=== PATIENT | male | born 1985 | race Caucasian/White ===

== ENCOUNTER 2020-08-18 12:07 | Day surgery (SDC) | payer OTHER ==
[~2020-08-18 12:07] MED LIST: Glycopyrrolate 0.2 MG/ML SDV ONE; Ketorolac 30 MG/ML SDV ONE; Lidocaine 2% 5 ML SDV ONE; Midazolam 1 MG/ML 2 ML SDV ONE; Ondansetron 4 MG/2 ML SDV ONE; Propofol 200 MG/20 ML SDV ONE; Rocuronium Bromide 50 MG/5 ML Syringe ONE; fentaNYL 100 MCG/2 ML SDV ONE
[2020-08-18] MEDS ORDERED: Lactated Ringers 1,000 ML IV SCH (12:15)
--- NOTE | 2020-08-18 12:56 | PCM.PREANE ---
Preanesthetic Assessment - Anesthesia/Transfusion/Family Hx Anesthesia History: No Prior Anesthesia Family History of Anesthesia Reaction: No Transfusion History: No Prior Transfusion(s) - Review of Systems General: No Symptoms Pulmonary: No Symptoms Cardiovascular: No Symptoms Neurological: No Symptoms Other: Reports: None - Physical Assessment NPO Status Date: 08/17/20 Height: 5 ft 10 in Weight: 79.379 kg ASA Class: 1 Mental Status: Alert & Oriented x3 Airway Class: Mallampati = 2 Dentition: Reports: Normal Dentition ROM/Head Extension: Full Lungs: Clear to Auscultation, Normal Respiratory Effort Cardiovascular: Regular Rate, Regular Rhythm - Lab Values: Laboratory Last Values SARS-CoV-2 RNA ([facility]) NEGATIVE (NEGATIVE) 08/18/20 10:22 - Allergies Allergies/Adverse Reactions: Allergies Allergy/AdvReac Type Severity Reaction Status Date / Time No Known Allergies Allergy Verified 08/18/20 10:24 - Blood Blood Available: No - Anesthesia Plan Pre-Op Medication Ordered: None - Acknowledgements Anesthesia Type Planned: Spinal Pt an Appropriate Candidate for the Planned Anesthesia: Yes Alternatives and Risks of Anesthesia Discussed w Pt/Guardian: Yes Pt/Guardian Understands and Agrees with Anesthesia Plan: Yes Additional Comments: PMH: none PLAN: saddle block PreAnesthesia Questionnaire HEENT History: Reports: None Cardiovascular History: Reports: None Respiratory History: Reports: None Gastrointestinal History: Reports: Hemorrhoids Other Gastrointestinal History: occasional heartburn Genitourinary History: Reports: None Musculoskeletal History: Reports: Fracture Other Musculoskeletal History: hx fx wrist and fingers Neurological History: Reports: Concussion Psychiatric History: Reports: Other (See Below) Other Psychiatric History: "undiagnosed PTSD" Endocrine/Metabolic History: Reports: None Hematologic History: Reports: None Immunologic History: Reports: None Oncologic (Cancer) History: Reports: None Dermatologic History: Reports: None - Past Surgical History Head Surgeries/Procedures: Reports: None HEENT Surgical History: Reports: Oral Surgery Cardiovascular Surgical History: Reports: None Respiratory Surgical History: Reports: None GI Surgical History: Reports: None Male Surgical History: Reports: None Endocrine Surgical History: Reports: None Neurological Surgical History: Reports: None Musculoskeletal Surgical History: Reports: None Oncologic Surgical History: Reports: None Dermatological Surgical History: Reports: None - SUBSTANCE USE Tobacco Use Status *Q: Never Tobacco User - HOME MEDS Home Medications: Home Meds . [No Known Home Meds] 08/18/20 [History] - CURRENT (IN HOUSE) MEDS Current Meds: Current Medications Lactated Ringer's (Ringers, Lactated) 1,000 mls @ 125 mls/hr IV ASDIRECTED REGULO Discontinued Medications Fentanyl (Sublimaze) Confirm Administered Dose 100 mcg .ROUTE .STK-MED ONE Stop: 08/18/20 12:07 Glycopyrrolate (Robinul) Confirm Administered Dose 0.2 mg .ROUTE .STK-MED ONE Stop: 08/18/20 12:07 Glycopyrrolate (Robinul) Confirm Administered Dose 0.6 mg .ROUTE .STK-MED ONE Stop: 08/18/20 12:07 Ketorolac Tromethamine (Toradol) Confirm Administered Dose 30 mg .ROUTE .STK-MED ONE Stop: 08/18/20 12:07 Lidocaine (Xylocaine-Mpf 2%) Confirm Administered Dose 5 ml .ROUTE .STK-MED ONE Stop: 08/18/20 12:07 Midazolam HCl (Versed 1 Mg/Ml) Confirm Administered Dose 2 mg .ROUTE .STK-MED ONE Stop: 08/18/20 12:07 Ondansetron HCl (Zofran) Confirm Administered Dose 4 mg .ROUTE .STK-MED ONE Stop: 08/18/20 12:07 Propofol (Diprivan 20 Ml) Confirm Administered Dose 200 mg .ROUTE .STK-MED ONE Stop: 08/18/20 12:06 Rocuronium [place] (Rocuronium [place]) Confirm Administered Dose 50 mg .ROUTE . STK-MED ONE Stop: 08/18/20 12:07
[2020-08-18] MEDS ORDERED: Midazolam 1 MG/ML 2 ML SDV ONE ×2 (13:17→14:28)
[2020-08-18] MEDS ORDERED: Sodium Chloride 0.9% 20 ML ONE (14:09)
[2020-08-18] MEDS ORDERED: cefOXitin 1 GM Vial ONE (14:09)
[2020-08-18] MEDS ORDERED: Lidocaine 1% with EPINEPHrine 1:100,000 20 ML MDV ONE ×2 (14:22→15:58)
[2020-08-18] MEDS ORDERED: Propofol 200 MG/20 ML SDV ONE ×3 (14:52→15:16)
[2020-08-18] MEDS ORDERED: Lidocaine 2% Jelly 30 ML Tube ONE (16:00)
--- NOTE | 2020-08-18 16:42 | PCM.OPNOTE ---
- General Post-Op/Procedure Note Date of Surgery/Procedure: 08/18/20 Operative Procedure(s): Hemorrhoidectomy Findings: strangulated left hemorrhoid. incarcerated right posterior hemorrhoid. dictation number [id number] Pre Op Diagnosis: strangulated left hemorrhoid. incarcerated right posterior hemorrhoid. Post-Op Diagnosis: strangulated left hemorrhoid. incarcerated right posterior hemorrhoid. Anesthesia Technique: Spinal Primary Surgeon: Tee Lock Pathology: Hemorrhoids EBL in mLs: 20 Condition: Good
--- NOTE | 2020-08-18 16:50 | PCM.POSTAN ---
POST ANESTHESIA ASSESSMENT - MENTAL STATUS Mental Status: Alert - VITAL SIGNS Vital Signs: Last Vital Signs Temp 36.6 C 08/18/20 16:06 Pulse 82 08/18/20 16:42 Resp 17 08/18/20 16:42 BP 119/79 08/18/20 16:42 Pulse Ox 99 08/18/20 16:42 - RESPIRATORY Respiratory Status: Respiratory Rate WNL - CARDIOVASCULAR CV Status: Pulse Rate WNL - GASTROINTESTINAL GI Status: No Symptoms - POST OP HYDRATION Hydration Status: Adequate & Stable
--- NOTE | 2020-08-18 17:40 | PCM48HPAN ---
Post Anesthesia Note - EVALUATION WITHIN 48HRS OF ANESTHETIC Vital Signs in Normal Range: Yes Patient Participated in Evaluation: Yes Respiratory Function Stable: Yes Airway Patent: Yes Cardiovascular Function Stable: Yes Hydration Status Stable: Yes Pain Control Satisfactory: Yes Nausea and Vomiting Control Satisfactory: Yes Mental Status Recovered: Yes Vital Signs: Last Vital Signs Temp 36.0 C L 08/18/20 16:47 Pulse 71 08/18/20 16:47 Resp 15 08/18/20 16:47 BP 123/70 08/18/20 16:47 Pulse Ox 99 08/18/20 16:47
--- NOTE | 2020-08-18 18:28 | OR ---
SURGEON: JG DEL ROSARIO MD DATE OF PROCEDURE: 08/18/2020 PREOPERATIVE DIAGNOSES: 1. Strangulated gangrenous left hemorrhoid. 2. Incarcerated right-sided hemorrhoid. POSTOPERATIVE DIAGNOSES: 1. Strangulated necrotic left hemorrhoid. 2. Incarcerated right posterior hemorrhoid. PRIMARY SURGEON: Jg Del Rosario MD. ANESTHESIA: Spinal with anesthesiologist. ESTIMATED BLOOD LOSS: 20 mL. COMPLICATIONS: None. SPECIMEN: Hemorrhoids. PROCEDURE PERFORMED: Hemorrhoidectomy of the left and right posterior hemorrhoidal pillars. REASON FOR PROCEDURE: Patient is a pleasant 35-year-old gentleman who has had hemorrhoids since 2006. He said about 4 to 5 days ago, he had onset of severe rectal pain. He had the hemorrhoids that he has usually reduced. He cannot reduce anymore. He saw me in clinic today. In looking, it looks like the left side is starting to strangulate. It is kind of looking black, necrotic, potentially gangrenous, and then the right I was not able to reduce. reduced and potentially removed with hemorrhoidectomy. I went over the risks, goals and alternatives of this. This risks include, but not limited to bleeding, infection, urinary retention, injury to underlying structures such as the sphincter muscle leading to incontinence of stool or flatus, that this could recur, stenosis. I also went over that we would not be able to remove all hemorrhoids at this time. The patient understands and wishes to proceed. Also, I talked with the and answered her questions. OPERATIVE NARRATIVE: The patient was brought back to the OR. He was prepped and draped in the usual sterile fashion. He was put in a prone dorcas-knife position. He did get spinal. He did get some preoperative antibiotics. After time-out was performed, anal block was done. Exam under anesthesia was done. Again, the left side hemorrhoid was fairly extensive and was starting to get black and necrotic. Even under sedation, this was difficult to really fully reduce. Right side was still large, looks more right posterior hemorrhoid. This one I was able to slightly reduce. It was pinker, but it was also starting to form area that was darker and more necrotic looking. Attention was then turned to the left hemorrhoid first. I did put a Vicryl stitch in the apex of the hemorrhoid. Hemorrhoid was then gently dissected with cautery and mainly Harmonic Scalpel gently dissecting between the muscle. By lowering the vessel, you could see the hemorrhoidal vascular above. I just went down in a wedge shape to our apex where the Vicryl stitch was. I got down to the apex. Hemorrhoid was then suture ligated and then taken off. There was good hemostasis. I then turned attention to the right side. This was more of right posterior, but it was very large and going to the anterior part a little bit. This again, a stitch was made at what appeared to be more of apex of the hemorrhoid with a Vicryl stitch. Now, the hemorrhoid was elevated up and gently dissected away with Harmonic and blunt dissection. I did bring up quite a bit of the hemorrhoidal nest of veins. This continued to the apex, which was again suture ligated and then transected. Again, there was good hemostasis. The hemorrhoids were sent off to pathology. Now, the rectum was again inspected. There was good hemostasis. On the left, there was still a slight bleed from where we suture ligated the right hemorrhoid, so did another suture ligation of the vessel and now had good hemostasis. The tissue was somewhat edematous and the hemorrhoidal disease was quite extensive. Because of this, I did not close the hemorrhoidal incisions, but there was good tissue mucosa between both of the excision sites. Now some Surgicel with lidocaine ointment was placed into the rectum. Sponge and needle counts were correct and the patient was transferred to recovery room in stable condition. TOAN / VIRI /[id number]
== END 2020-08-18 17:45 | disposition home or self-care (01) ==
LOC: MW.SDS 12:07
PROVIDERS: ATTEND Surgery
DX: K64.8 Other hemorrhoids (principal); I96 Gangrene, not elsewhere classified; F43.10 Post-traumatic stress disorder, unspecified; Z01.812 Encounter for preprocedural laboratory examination; Z20.828 Contact with and (suspected) exposure to other viral communicable diseases
CPT/HCPCS: 46260; 87635; 88304; J0694; J1885; J2001; J2250; J2405; J2704; J3010; J3490; J7120; 00902; U0002